=== PATIENT | male | born 1955 | race Caucasian/White ===

== ENCOUNTER 2022-07-04 09:14 | Emergency (ER) | payer MEDICARE, SELFPAY ==
--- NOTE | ~2022-07-04 | XR_ITS ---
EXAMINATION: XR chest 2V DATE: 07/04/2022 10:01 INDICATION: Cough and fever and congestion. TECHNIQUE: Frontal and lateral views of the chest were obtained. COMPARISON: None. FINDINGS: There is no pneumonia, pleural effusion, or pneumothorax. The heart size is normal. There i s a left chest wall pacer with leads in the right atrium and right ventricle. There are surgical clip s in the abdomen. IMPRESSION: 1. No acute cardiopulmonary disease. Reviewed, dictated and finalized at location A. [facility] [employer]
[2022-07-04 09:26] VITALS: BP 146/81; PULSE 89; RESP 20; TEMP 37.1; O2SAT 97
--- NOTE | 2022-07-04 09:46 | ED.URI ---
HPI - URI/Sore Throat General Chief Complaint: Upper Respiratory Infection Stated Complaint: Chest Congestion/Cough Source: patient, family and RN notes reviewed History of Present Illness HPI Narrative: 66-year-old male presents to Urgent Care with at side. Patient states he has been having facial congestion and head pressure since Wednesday. Patient reports chest congestion as well. Patient states now when he lays down he coughs uncontrollably. 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 Denies any headache, ear pain, sore throat, vomiting, diarrhea, chest pain, or shortness of breath. Patient has been taking Mucinex, NyQuil, and Tylenol at home. Some parts of this dictation were generated by voice recognition software and may contain typographical and/or grammatical inaccuracies. Related Data Home Medications Medication Instructions Recorded Confirmed apixaban 5 mg tablet (Eliquis) 5 mg PO BID 07/04/22 07/04/22 Allergies Allergy/AdvReac Type Severity Reaction Status Date / Time shellfish derived Allergy Mild Rash Verified 07/04/22 09:44 Review of Systems Review of Systems: CONSTITUTIONAL: Subjective fever EYES: Denies visual changes, redness, or discharge. ENT: Congestion and head pressure CARDIOVASCULAR: Denies chest pain, palpitations, or edema. RESPIRATORY: Cough and chest congestion GASTROINTESTINAL: Denies abdominal pain, nausea, vomiting, or diarrhea. GENITOURINARY: Denies dysuria or hematuria. SKIN: Denies rash or itching. MUSCULOSKELETAL: Denies back pain, joint pain, or myalgia. NEUROLOGIC: Denies headache, numbness, or weakness. PMFSH Family History Family History (Updated 07/05/15 @ 08:16 by DOCTOR UNKNOWN) Father Cerebrovascular accident Mother Family history of chronic obstructive pulmonary disease Acute myocardial infarction Other Diabetes mellitus Family history of cardiovascular disease Family history of malignant neoplasm Social History Social History Alcohol intake: never Comments At the time of my signature, I reviewed and agree with the nursing past medical, surgical, social, and family history. There is no relevant family history pertinent to the patient complaint. Exam Narrative: GENERAL: This is a well-nourished, well-developed patient, in no apparent distress. HEAD: normocephalic, atraumatic. EYES: PERRL. Sclera clear/white. Vision is grossly intact. EARS: External ears normal, auditory canals clear and without drainage, TMs normal without perforation. Hearing grossly intact. NOSE: Congestion THROAT: Mucous membranes moist, posterior pharynx clear. NECK: Neck supple, non-tender without lymphadenopathy, masses or thyromegaly. CARDIOVASCULAR: Regular rate and rhythm without murmurs, gallops, or rubs. RESPIRATORY: Decreased breath sounds throughout. Rales and rhonchi noted. GASTROINTESTINAL: Abdomen soft, non-tender, nondistended. Bowel sounds are active. No hepato-splenomegaly, or palpable masses. No guarding. SKIN: warm, intact with no suspicious lesions or rash, good texture and turgor. NEURO: awake, alert, and oriented to person, place and time. There were no obvious focal neurologic abnormalities. BACK: Nontender without deformity or crepitance. No flank tenderness. Course Course Level of Care: Express Care Visit Vital Signs Vital signs: Vital Signs Temperature 98.7 F 07/04/22 09:26 Pulse Rate 89 07/04/22 09:26 Respiratory Rate 20 07/04/22 09:26 Blood Pressure 146/81 H 07/04/22 09:26 Pulse Oximetry 97 07/04/22 09:26 Oxygen Delivery Room Air 07/04/22 09:26 Temperature 98.7 F 07/04/22 09:26 Pulse Rate 89 07/04/22 09:26 Respiratory Rate 20 07/04/22 09:26 Blood Pressure 146/81 H 07/04/22 09:26 Pulse Oximetry 97 07/04/22 09:26 Oxygen Delivery Room Air 07/04/22 09:26 At the time of my signature, I reviewed and agree with the nursing past medical, surgical, social, and family h
== END 2022-07-04 10:25 | disposition home or self-care (01) ==
PROVIDERS: Emergency Provider Nurse Practitioner Family; PCP Family Medicine
DX: J32.0 Chronic maxillary sinusitis (principal)
CPT/HCPCS: 71046; 99213; G0463

== ENCOUNTER 2023-03-16 12:50 | Emergency (ER) | payer MEDICARE, SELFPAY ==
--- NOTE | 2023-03-16 13:01 | ED.URI ---
HPI - URI/Sore Throat General Chief Complaint: Upper Respiratory Infection Stated Complaint: left side of face/head pain/ear Source: patient and RN notes reviewed Mode of arrival: ambulatory Limitations: no limitations History of Present Illness HPI Narrative: Patient is a 67-year-old male who presents to the [facility] with complaints of headache starting last night. He states that the headache radiates into his left ear and left eye. He denies any visual disturbance. Denies eye redness or drainage. He reports left ear pain but denies drainage. Patient also reports chills and sweats. Denies known fever. States that he has been experiencing nasal congestion, sore throat, an infrequent nonproductive cough. He denies chest pain or shortness of breath. Denies known sick contacts. States that he is experienced some mild nausea with the headache. Denies adominal pain, vomiting, diarrhea. Related Data Home Medications Medication Instructions Recorded Confirmed apixaban 5 mg tablet (Eliquis) 5 mg PO BID 07/04/22 07/04/22 metronidazole 500 mg tablet mg 03/16/23 Allergies Allergy/AdvReac Type Severity Reaction Status Date / Time shellfish derived Allergy Mild Rash Verified 07/04/22 09:44 Review of Systems Review of Systems: CONSTITUTIONAL: Denies fever, but reports chills and sweats. EYES: Denies visual changes, redness, or discharge. ENT: Reports left ear pain and sore throat. CARDIOVASCULAR: Denies chest pain, palpitations, or edema. RESPIRATORY: Denies dyspnea. Reports cough. GASTROINTESTINAL: Denies abdominal pain, vomiting, or diarrhea. Reports nausea. GENITOURINARY: Denies dysuria or hematuria. SKIN: Denies rash or itching. MUSCULOSKELETAL: Denies back pain, joint pain, or myalgia. NEUROLOGIC: Denies numbness or weakness. Reports headache. Pertinent positives per HPI. [facility] Family History Family History Father Cerebrovascular accident Mother Family history of chronic obstructive pulmonary disease Acute myocardial infarction Other Diabetes mellitus Family history of cardiovascular disease Family history of malignant neoplasm Social History Social History Alcohol intake: never Comments At the time of my signature, I reviewed and agree with the nursing past medical, surgical, social, and family history. There is no relevant family history pertinent to the patient complaint. Exam Narrative: GENERAL: This is a well-nourished, well-developed patient, in no apparent distress. HEAD: normocephalic, atraumatic. EYES: Sclera clear/white. Vision is grossly intact. EARS: External ears normal,TMs without perforation. Right TM normal. Left TM erythematous and bulging. Hearing grossly intact. NOSE: External nose normal. Mild congestion. THROAT: Mucous membranes moist, posterior pharynx clear. NECK: Neck supple, non-tender without lymphadenopathy, masses or thyromegaly. CARDIOVASCULAR: Regular rate and rhythm without murmurs, gallops, or rubs. RESPIRATORY: Clear to auscultation. Breath sounds equal bilaterally. No wheezes, rales, or rhonchi. GASTROINTESTINAL: Abdomen soft, non-tender, nondistended. Bowel sounds are active. No hepato-splenomegaly, or palpable masses. No guarding. SKIN: warm, intact with no suspicious lesions or rash, good texture and turgor. NEURO: awake, alert, and oriented to person, place and time. There were no obvious focal neurologic abnormalities. Course Course Level of Care: Express Care Visit Vital Signs Vital signs: Vital Signs Temperature 98.5 F 03/16/23 13:08 Pulse Rate 85 03/16/23 13:08 Respiratory Rate 16 03/16/23 13:08 Blood Pressure 123/67 03/16/23 13:08 Pulse Oximetry 96 03/16/23 13:08 Oxygen Delivery Room Air 03/16/23 13:08 Temperature 98.5 F 03/16/23 13:08 Pulse Rate 85 03/16/23 13:08 Respiratory Rate 16 03/16/23
[2023-03-16 13:08] VITALS: BP 123/67; PULSE 85; RESP 16; TEMP 36.9; O2SAT 96
== END 2023-03-16 13:17 | disposition home or self-care (01) ==
PROVIDERS: Emergency Provider Nurse Practitioner; PCP Family Medicine
DX: H66.92 Otitis media, unspecified, left ear (principal); Z86.73 Personal history of transient ischemic attack (TIA), and cerebral infarction without residual deficits; Z95.0 Presence of cardiac pacemaker
CPT/HCPCS: 99213; G0463

== ENCOUNTER 2024-10-03 08:58 | Emergency (ER) | payer MEDICARE, SELFPAY ==
--- NOTE | ~2024-10-03 | XR_ITS ---
XR chest 2V 10/03/2024 09:30 Indication: Cough for 4 days Procedure: 2 view chest Comparison: 07/04/2022 Findings: Heart size normal. Pacemaker leads stable. No focal air space disease, pulmonary edema, ple ural effusion or suspected pneumothorax. Impression: 1: No acute cardiopulmonary disease. Reviewed, dictated and finalized at location A. Impression: 1: No acute cardiopulmonary disease.
[2024-10-03 09:09] VITALS: BP 140/77; PULSE 75; RESP 16; TEMP 36.4; O2SAT 98
--- OUTSIDE RECORDS SUMMARY | 2024-10-03 09:10 | XMS_ITS | Encounter Summary ---
Author Organization [facility] Healthcare Address [address] [place] [id number] Care Team Providers Care Seasonal Sales Associate Name Role Phone Marc Patel MD Primary Care Provider [phone] Hector Ramey MD Unavailable [phone] Tung Good DO Unavailable [phone] Marino Pang NP Unavailable [phone] Encounter Details Date Type Department Care Team (Late st Contact Info) Description 10/15/2023 Telephone [facility] [address] [place] [address] Marc Patel MD [address] [place] [address] Social History Tobacco Use Types Packs/Day Years Used Date Smoking Tobacco: Every Day Cigarettes Smokeless Tobacco: Never Comments:Smoking History Pac ks/day: 1 Packs Alcohol Use Standard Drinks/Week Comments No 0 (1 standard drink = 0.6 oz pur e alcohol) AUDIT-C Answer Date Recorded Q1: How often do you have a drink containing alcohol? Never 09/23/2021 Q2: How many drinks containi ng alcohol do you have on a typical day when you are drinking? Patient does not drink Q3: How often do you have si x or more drinks on one occasion? Never 09/23/2021 PHQ-2 Answer Date Recorded PHQ-2 Total Score (If total score is 3 or more points, staff should administer the PHQ-9) 0 03/29/2023 PRAPARE - Transportation Answer Date Re corded In the past 12 months, has l ack of transportation kept you from medical appointments or from getting medications? No 12/2020 In the past 12 months, has l ack of transportation kept you from meetings, work, or from getting things needed for daily living? No 08/08/2020 Personal Safety Answer Date Recorded Have you ever been in or are you currently in a harmful physical or emotional relationship or is someone making you feel afraid or unsafe? 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 Gender Identity Not on file Sexual Orientation Not on file documented as of this encounter Plan of Treatment Upcoming Encounters Date Type Department Care Team (Late st Contact Info) Description 01/30/2025 10:30 AM CDT Hospital Encounter [address] [address] Milena Dan MD [address] [place] [address] [address]REZ [address] [place] [id number] 01/30/2025 10:30 AM CDT - 01/30/2025 11:00 AM CDT Surgery [address] [address] Milena Dan MD [address] [place] [address] DR [address]REZ [address] [place] [id number] COLONOSCOPY Scheduled Procedures Name Priority Associated Diagnoses Date/Ti me COLONOSCOPY History of colonic polyps 01/30/2025 10:30 AM CDT documented as of this encounter Visit Diagnoses Not on filedocumented in this encounter Care Teams Seasonal Sales Associate Relationship Specialty Start Date End Date Marc Patel MD [address] [place] [address] PCP - General 07/01/15 Hector Ramey MD [address] [place] [address] Consulting Physician Cardiovascular Disease 07/20/18 Tung Good DO [address] [facility] [address] [place] [address] Cardiovascular Disease 07/20/18 Marino Pang NP [address] [facility] [address] [place] [address] Nurse Practitioner Nurse Practitioner 09/23/21 documented as of this encounter
--- OUTSIDE RECORDS SUMMARY | 2024-10-03 09:10 | XMS_ITS | Clinical Summary ---
Author Organization [facility] Address [address] [place] [address] Care Team Providers Care Industrial Workers Name Role Phone Marc Patel MD Primary Care Provider [phone] Hector Ramey MD Unavailable [phone] Tung Good DO Unavailable [phone] Marino Pang NP Unavailable [phone] Allergies Active Allergy Reactions Criticality Noted Date Comments Shellfish Containing Products Edema,Vomiting Medium Shellfish Derived Rash,Edema Medium Medications digestive enzymes capsule Take 1 capsule by mouth 2 (two) times a day. Active HYDROcodone-dat taminophen (NORCO) 5-325 mg per tabletIndicatio ns:Pain Take 1 tablet by mouth daily as needed for pain 30 tablet 09/10/2024 10/11/19 25 Active HYDROcodone-dat taminophen (NORCO) 5-325 mg per tabletIndicatio ns:Pain Take 1 tablet by mouth daily as needed for pain 30 tablet 10/10/2024 11/10/19 25 Active apixaban (Eliquis) 5 mg tablet Take 1 tablet (5 mg total) by mouth 2 (two) times a day 60 tablet 11 07/28/2024 07/29/19 26 Active amoxicillin-cla vulanate (AUGMENTIN) 875-125 mg per tablet Take 1 tablet by mouth 2 (two) times a day for 10 days 20 tablet 09/27/2024 10/08/19 25 Active HYDROcodone-dat taminophen (NORCO) 5-325 mg per tabletIndicatio ns:Pain Take 1 tablet by mouth daily as needed for pain 30 tablet 08/11/2024 09/11/19 25 Active Problems Problem Noted Date Diagnosed Date Vertebrogenic low back pain 06/01/2024 Overactive bladder 02/03/2024 Assessment & Plan (02/03/2024 9:42 AM CDT): Flomax started to aid in urinary frequency relief. Will continue to monitor. Need for influenza vaccination 02/03/2024 Assessment & Plan (02/03/2024 9:42 AM CDT): Flu vaccine given in office. Lumbar radiculopathy 02/03/2024 Assessment & Plan (02/03/2024 9:43 AM CDT): Continues to follow with ORTHO for pain control and monitoring. History of colonic polyps 02/03/2024 Viral URI with cough 03/29/2023 Assessment & Plan (03/29/2023 2:43 PM SURGICAL SPECIALIST): Symptoms gradually improving. Prescribed Medrol taper for residual cough and ear pressure. Instructed patient to use albuterol inhaler 1-2 puffs every 4-6 hours as needed. Recommend avoiding pseudoephedrine/Sudafed. Encouraged smoking cessation. Continue pushing fluids. Patient to follow-up in the next few days if experiencing any new or worsening symptom. Lungs clear on exam. Sinusitis 01/25/2023 BMI 27.0-27.9,adult 11/13/2021 Assessment & Plan (03/29/2023 2:42 PM SURGICAL SPECIALIST): Patient with intentional weight loss following healthy lifestyle changes, following lower carb diet and working on increasing protein. Assessment & Plan (11/13/2021 8:38 AM CDT): Reviewed need to lose weight, reviewed health benefits. Reviewed recommendations for daily intake & activity 20-30 minutes/day. Discussed healthy diet and importance of regular physical activity. Urinary frequency 11/13/2021 Assessment & Plan (11/13/2021 8:39 AM CDT): Denies UTI symptoms. PSA ordered; will contact with results when received. 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 He will continue with long-term or anticoagulation. Venous insufficiency 02/20/2021 Osteoarthritis of both knees 02/20/2021 Assessment & Plan (02/20/2021 9:19 AM CDT): Patient asked if there was treatment for his knee arthritis. We discussed the risks of oral anticoagulation in addition to nonsteroidals. His bleeding risk is about 1% per year, adding NSAIDs would change that to about 2% per year. Medicare annual wellness visit, subsequent 11/05 Assessment & Plan (02/03/2024 9:42 AM CDT): In regard to health maintenance, Colonoscopy- referral placed PSA- UTD Influenza vaccine- UTD Pneumococcal vaccine- UTD Eat a healthy diet: focus on lean meats and proteins, more fruits, vegetables and whole grains and low in sugars and fats. Limit red meat and avoid processed meat. Maintain a healthy weight; avoid being overweight. Aim for a normal body mass index (BMI) of 18.5-24.9. Help learning to eat healthier, we can set up appointment with payroll technician/supervisor assembly. Have an active lifestyle, strive for 30 minutes of moderate exercise 5 times a week and strength or resistance training at least twice a week. Use broad-spectrum (UVA+UVB) sunscreen with SPF 30 or greater, is water resistant, limit time spent in the sun (10 am-4pm), wear hat, wear UV protective clothing, wear sunglasses. Never use a tanning bed. Skin that was irradiated may be more sensitive over your lifetime. Limit alcohol intake, 1 drink per day for a woman and 2 drinks per day for a man. Assessment & Plan (11/13/2021 8:38 AM CDT): 1. Eat a healthy diet: focus on lean meats and proteins, more fruits, vegetables and whole grains and low in sugars and fats. Limit red meat and avoid processed meat. 2. Maintain a healthy weight; avoid being overweight. Aim for a normal body mass index (BMI) of 18.5-24.9. Help learning to eat healthier, we can set up appointment with payroll technician/supervisor assembly. 3. Have an active lifestyle, strive for 30 minutes of moderate exercise 5 times a week and strength or resistance training at least twice a week. 4. Use broad-spectrum (UVA+UVB) sunscreen with SPF 30 or greater, is water resistant, limit time spent in the sun (10 am-4pm), wear hat, wear UV protective clothing, wear sunglasses. Never use a tanning bed. Skin that was irradiated may be more sensitive over your lifetime. 5. Does smoke tobacco; declines participate in a smoking cessation program. 6. Limit alcohol intake, 2 drinks per day for a man. Assessment & Plan (11/05/2020 7:29 PM CDT): 1. Eat a healthy diet: focus on lean meats and proteins, more fruits, vegetables and whole grains and low in sugars and fats. Limit red meat and avoid processed meat. 2. Maintain a healthy weight; avoid being overweight. Aim for a normal body mass index (BMI) of 18.5-24.9. Help learning to eat healthier, we can set up appointment with payroll technician/supervisor assembly. 3. Have an active lifestyle, strive for 30 minutes of moderate exercise 5 times a week and strength or resistance training at least twice a week. 4. Use broad-spectrum (UVA+UVB) sunscreen with SPF 30 or greater, is water resistant, limit time spent in the sun (10 am-4pm), wear hat, wear UV protective clothing, wear sunglasses. Never use a tanning bed. Skin that was irradiated may be more sensitive over your lifetime. 5. Does smoke tobacco; declines participate in a smoking cessation program. 6. Limit alcohol intake, 2 drinks per day for a man. Hx of colonic polyps 09/16/2020 Overview (09/16/2020): Added automatically from request for surgery [id number] Assessment & Plan (11/13/2021 8:37 AM CDT): Last colonoscopy 12/23/[address] Dan. To repeat in 3 yrs. Tobacco dependence due to cigarettes 08/15/2020 Assessment & Plan (03/29/2023 2:42 PM SURGICAL SPECIALIST): Encouraged smoking cessation Assessment & Plan (11/13/2021 8:37 AM CDT): Precontemplative. Encouraged complete smoking cessation. Discussed different types of medications & kydu-djn-jmymixb aides to help with cessation. Assessment & Plan (11/07/2020 8:34 AM CDT): Continues to smoke 1+PPD. contemplative. Encouraged complete smoking cessation. Discussed different types of medications & ymlf-jsi-vvzvwps aides to help with cessation. Patients smoking >10 cigarettes/day: -Begin with step 1 (21 mg/day) for 6 weeks -followed by step 2 (14 mg/day) for 2 weeks -finish with step 3 (7 mg/day) for 2 weeks Discussed above w/Mr Yury. nicoderm patches 21mg/day sent. Assessment & Plan (08/15/2020 9:31 AM CDT): Precontemplative. Encouraged complete smoking cessation. Discussed different types of medications & thfx-lue-rejzimh aides to help with cessation. Encounter for screening for lipid disorder 08/15 Assessment & Plan (02/03/2024 9:53 AM CDT): Lipid stable continue to monitor. Assessment & Plan (11/07/2020 8:33 AM CDT): 04/17/18 GP=813 HDL=32 QA=085 KKJ=545 9/4/20 XH=739 HDL=27 XW=470 LDL=71 TC/HDL=6.0 08/16/20 QR=590 HDL=39 TF=839 RZR=193 TC/HDL=5.0 Lipid panel ordered; will call w/results when received. Reviewed diet/exercise recommendations. Assessment & Plan (08/15/2020 11:44 AM CDT): Lab Results Component Value Date CHOL 168 01/05/2020 CHOL 173 06/30/2017 CHOL 160 06/14/2015 HDL 27 (L) 01/05/2020 HDL 29 (L) 06/30/2017 HDL 32 (L) 06/14/2015 LDL 107 06/14/2015 LDL 107 09/15/2012 TRIG 350 (H) 01/05/2020 TRIG 240 (H) 06/30/2017 TRIG 106 06/14/2015 Lipid panel ordered; will call w/results when received. Reviewed diet/exercise recommendations. Colon cancer screening 08/15/2020 Assessment & Plan (02/03/2024 9:41 AM CDT): Referral for GI consult placed Assessment & Plan (11/07/2020 8:21 AM CDT): Has colonoscopy scheduled for 12/29/20 w/Dr Dan Assessment & Plan (08/15/2020 11:45 AM CDT): Referral to [facility] for colonosocpy creening. Dr Dan had requested for repeat 2017 (after 09/11/14 colonoscopy). Cardiac pacemaker 02/21/2020 Assessment & Plan (11/13/2021 8:37 AM CDT): Has L chest PPM interrogated every 3 mos. Last done 10/2021. Managed by [facility]. Assessment & Plan (02/21/2020 11:40 AM CDT): Patient's pacemaker revealed adequate capture and sensing thresholds. He has had recurrent episodes of PAF. Battery life was adequate Paroxysmal atrial fibrillation 08/22/2019 Assessment & Plan (11/13/2021 8:36 AM CDT): Managed by [facility]. Has appt 01/2022 w/Dr Gonzales. L chest PPM. eliquis 5mg bid. Remains asymptomatic. Assessment & Plan (02/20/2021 8:55 AM CDT): Patient remains asymptomatic with his atrial fibrillation. He has had no symptoms to suggest heart failure. He will continue with his current conservative management and long-term anticoagulation. Assessment & Plan (11/05/2020 7:32 PM CDT): Managed by Dr Good. Eliquis 5mg bid. L chest PPM. Assessment & Plan (08/15/2020 11:42 AM CDT): Managed by Dr Good. L chest PPM. Remains on eliquis 5mg bid. Assessment & Plan (02/21/2020 10:55 AM CDT): Patient remains asymptomatic of any symptoms from his PAF. Will continue with conservative management. Anticoagulation management encounter 08/22/2019 Assessment & Plan (02/21/2020 10:55 AM CDT): Patient has had no major bleeding events on his oral anticoagulation. This will continue long-term. Sinus node dysfunction 08/18/2019 Cryptogenic stroke 08/18/2019 Resolved Problems Problem Noted Date Diagnosed Date Resolved Date Class 1 obesity due to exces s calories without serious comorbidity with body mass index (BMI) of 31.0 to 31.9 in adult 11/07/2020 Assessment & Plan (11/07/2020 8:27 AM CDT): Reviewed need to lose weight, reviewed health benefits. Reviewed recommendations for daily intake & activity 20-30 minutes/day. Discussed healthy diet and importance of regular physical activity. Hematuria 09/09/2020 11/07/2020 Class 1 obesity due to exces s calories without serious comorbidity with body mass index (BMI) of 32.0 to 32.9 in adult 08/15/2020 Assessment & Plan (08/15/2020 11:19 AM CDT): Reviewed need to lose weight, reviewed health benefits. Reviewed recommendations for daily intake & activity 20-30 minutes/day. Discussed healthy diet and importance of regular physical activity. Right flank pain 08/15/2020 11/07/2020 Assessment & Plan (08/15/2020 1:13 PM CDT): Difficult to assess if musculoskeletal soft tissue. UA/cx ordered (will come back to have completed as he could not leave sample at time of appt). Not taking any otc for pain. Cannot take NSAIDs d/t eliquis but instructed to take acetaminophen per box directions. Cyclobenzaprine & medrol dose pack sent. Reviewed med SE & scheduling. Discussed otc biofreeze/muscle rubs to help. Discussed engaging w/uro but is leaving to go to [place] with as her sister is having mastectomy d/t breast cancer. They are staying there w/her for a short while. Reviewed red flags. Smoker 12/10/2017 08/15/2020 Assessment & Plan (02/21/2020 11:38 AM CDT): Unfortunately the patient continues to smoke. We discussed the importance of smoking cessation. Gallstones 11/17/2017 08/15/2020 Overview (11/17/2017): Added automatically from request for surgery [id number] Incisional hernia, without o bstruction or gangrene 11/17/2017 08/15/2020 Overview (11/17/2017): Added automatically from request for surgery [id number] Left upper quadrant pain 07/06/2017 Abdominal distention 07/06/2017 021 Tobacco dependence 06/29/2017 0 Acute sinusitis 06/05/2016 08/15/2020 Overview (08/06/2016): Acute sinusitis with symptoms > 10 days Tobacco use 06/05/2016 08/18/2019 Overview (08/06/2016): Tobacco use Diverticulitis of intestine 06/15/2015 08/15/2020 Overview (08/06/2016): Diverticulitis Encounters Date Type Department Care Team Description 10/02/2024 Telephone [facility] [address] [address] Marc Patel MD Additional Services Or Orders 09/27/2024 Orders Only [facility] [address] [address] Marc Patel MD 09/08/2024 9:01 AM CDT Anesthesia Event [facility] [address] [place] [address] Isaiah Alex MD Standefer, Zachary Daniel, CRNA 09/08/2024 9:00 AM CDT - 09/08/2024 10:15 AM CDT Surgery [facility] [address] [place] [address] Roberth Mehta MD Intracept L4, L5, and S1 09/08/2024 7:21 AM CDT - 09/08/2024 11:55 AM CDT Hospital Encounter [facility] [address] [place] [address] Roberth Mehta MD Discharge Disposition: Discharge to home or self care 08/18/2024 Telephone [facility] [address] [facility] [address] [place] [address] Roberth Mehta MD 08/17/2024 8:00 AM CDT Office Visit [facility] [address] [place] [address] Aravind Baer PA Bilateral primary osteoarthritis of knee (Primary Dx) 07/26/2024 2:27 PM CDT - 07/26/2024 11:59 PM CDT Hospital Encounter [facility] [address] [place] [address] Roberth Mehta MD Vertebrogenic low back pain (Primary Dx); Lumbar radiculopathy Discharge Disposition: Discharge to home or self care 07/14/2024 12:30 PM CDT Office Visit [facility] [id number] [place] [address] [address] [place] [address] Cortney Odom NP Lumbar radiculopathy 07/12/2024 10:15 AM CDT Ancillary Procedure [facility] [employer] [address] [place] [address] [address] [place] [address] Cardiac pacemaker; Paroxysmal atrial fibrillation (HCC); SSS (sick sinus syndrome) ([facility]) 07/12/2024 Telephone [facility] [place] [address] Anisha Campos MA from Last 3 Months Immunizations Immunization Administration Dates Next Due Influenza, Quadrivalent, Hig h Dose, Preservative Free, Intrr 01/18/2023,01/20/2022,02/05/2021,02/20 Influenza, Quadrivalent, Spl it, Intramuscular 01/15/2017 Influenza, Quadrivalent, Spl it, Preservative Free, Intramuscular 01/24/2019,01/24/2018,01/23/2018 Influenza, Trivalent, High D ose, Split, Preservative Free, Intramuscular 02/03/2024 Influenza, Unspecified 01/31/2018,01/01/2017 Pfizer SARS-CoV-2 Monovalent Vaccination (12+ Yrs) PURPLE 03/11/2021,08/05/2020,07/12/2020 Pneumococcal Conjugate PCV 13 01/24/2019 Pneumococcal Polysaccharide PPV23 02/21/2020 Surgical History Surgery Date Site/Laterality Comments VASECTOMY Vasectomy OTHER SURGICAL HISTORY testical cyst removal OTHER SURGICAL HISTORY 05/03/2015 - 05/02/2016 Hand assist laparoscopic sigmoid colectomy COLON SURGERY portion of intenstine removed CHOLECYSTECTOMY 12/10/2017 Laparoscopic Cholecystectomy with Tissue Repair of Umbilical Hernia INSERT / REPLACE / REMOVE PACEMAKER July 2018 POLYPECTOMY COLONOSCOPY 09/11/2014 COLONOSCOPY 09/29/2017 Medical History Medical History Date Comments Hx Other Medical diverticulitis; Comments: [place] 07/06/2014 - Diverticulosis Sick sinus syndrome (HCC) Paroxysmal atrial fibrillation (HCC) 08/22/2019 Hematuria Erectile dysfunction Back pain Colon polyp Diverticulitis Stroke (HCC) Family History Medical History Relation Name Comments Stroke Father Dad Stroke; COPD Mother Mom COPD; Heart disease Mother Mom Cardiovascular disease; Relation Name Status Comments Father Dad (Age 76) Mother Mom Social History Tobacco Use Types Packs/Day Years Used Date Smoking Tobacco: Every Day Cigarettes Smokeless Tobacco: Never Tobacco Cessation:Ready to Q uit: Yes; Counseling Given: Yes Comments:Smoking History Packs/day: 1 Packs Alcohol Use Standard Drinks/Week Comments No 0 (1 standard drink = 0.6 oz pur e alcohol) AUDIT-C Answer Date Recorded Q1: How often do you have a drink containing alcohol? Never 08/31/2024 Q2: How many drinks containi ng alcohol do you have on a typical day when you are drinking? Patient does not drink Q3: How often do you have si x or more drinks on one occasion? Never 08/31/2024 PHQ-2 Answer Date Recorded PHQ-2 Total Score (If total score is 3 or more points, staff should administer the PHQ-9) 2 04/11/2024 PRAPARE - Transportation Answer Date Re corded In the past 12 months, has l ack of transportation kept you from medical appointments or from getting medications? No 12/2020 In the past 12 months, has l ack of transportation kept you from meetings, work, or from getting things needed for daily living? No 08/08/2020 PHQ-9 Answer Date Recorded PHQ-9 Total Score 3 04/11/2024 Personal Safety Answer Date Recorded Have you ever been in or are you currently in a harmful physical or emotional relationship or is someone making you feel afraid or unsafe? Denies 09/08/2024 Sex and Gender Information Value Date Recorded Sex Assigned at Not on file Legal Sex Male 9:05 AM SURGICAL SPECIALIST Gender Identity Not on file Sexual Orientation Not on file Obstetrics History Last Filed Vital Signs Vital Sign Reading Time Taken Comments Blood Pressure 151/84 09/08/2024 11:40 AM CDT Pulse 61 09/08/2024 11:40 AM CDT Temperature 35.6 C (96 F) 09/08/2024 11:40 AM CDT Respiratory Rate 16 09/08/2024 11:40 AM CDT Oxygen Saturation 96% 09/08/2024 11:40 AM CDT Inhaled Oxygen Concentration - - Weight 97.3 kg (214 lb 8.1 oz) 09/08/2024 7:35 A M CDT Height 177.8 cm (5' 10) 09/08/2024 7:35 AM CDT Body Mass Index 30.78 09/08/2024 7:35 AM CDT Plan of Treatment Upcoming Encounters Date Type Department Care Team (Late st Contact Info) Description 01/30/2025 10:30 AM CDT Hospital Encounter [address] [address] Mliena Dan MD [address] [facility] [place] [address] 01/30/2025 10:30 AM CDT - 01/30/2025 11:00 AM CDT Surgery [address] [address] Milena Dan MD [address] [facility] [place] [address] COLONOSCOPY Scheduled Procedures Name Priority Associated Diagnoses Date/Ti me COLONOSCOPY History of colonic polyps 01/30/2025 10:30 AM CDT Health Maintenance Due Date Last Done Comments Hepatitis C Screening 1955 DTaP/Tdap/Td Vaccine (1 - Tdap) 1966 Hepatitis B Screening 07/09/1971 Zoster Vaccine (1 of 2) 07/09/2003 Colon Cancer Screening-Colonoscopy 12/24/2023 12/23/2020, 09/29/2017, 09/11/2014, Additional history exists Covid-19 Vaccine (2023-2 5 season) 2024 03/11/2021, 08/05/2020, 07/12/2020 Fall Risk Assessment 02/02/2025 02/03/2024, 03/29/2023, 11/27/2022, Additional history exists Well Visit 65+ 02/02/2025 02/03/2024, 11/01, 11/13/2021, Additional history exists Depression Screening 04/11/2025 04/11/2024, 04/11/2024, 02/03/2024, Additional history exists Pneumococcal vaccine 65+ Completed 02/21/2020, 01/02 Colon Cancer Screening-CT Colonography Discontinued 12/23/2020, 09/29/2017, 09/11/2014, Additional history exists Colon Cancer Screening-DNA Stool Discontinued 12/23/2020, 09/29/2017, 09/11/2014, Additional history exists Colon Cancer Screening-FIT Discontinued 12/23, 09/29/2017, 09/11/2014, Additional history exists Colon Cancer Screening-Sigmoidoscopy Discontinued 12/23/2020, 09/29/2017, 09/11/2014, Additional history exists Abdominal Aortic Aneurysm (A AA) Screen Completed 10/15/2022, 08/07/2020, 07/07/2017, Additional history exists Prostate Cancer Screening-PSA Discontinued , 11/19/2021, 11/07/2020, Additional history exists Influenza Vaccine Completed 02/03/2024, , 01/20/2022, Additional history exists Medical Devices Implanted Type Area Hand Welt Butter Device Identifier Shelf Expiration Date Model / Serial / Lot [employer] [id number] Promri Solia S 60cm Lead Pacing Steroid Eluting - [id number] - [id number] Implanted:Qty: 1 on 07/20/2018 by Hector Ramey MD at [facility] Lead [employer] 06/02/2020 [id number] / [id number] / [employer] [id number] Solia S 53cm Steroid Elute Bipolar Active Fixation Endocardial - [id number] - [id number] Implanted:Qty: 1 on 07/20/2018 by Hector Ramey MD at [facility] Lead [employer] 04/01/2020 [id number] / [id number] / [employer] [id number] Edora Promri 88l34d5.5mm 1 Chamber Rate Adaptive Unipolar Bipolar - [id number] - [id number] Implanted:Qty: 1 on 07/20/2018 by Hector Ramey MD at [facility] Pacemaker [employer] 10/01/2019 [id number] / [id number] / Procedures Procedure Name Priority Date/Time Associated Diagnosis Comments XR SPINE LUMBAR 2 OR 3 VIEWS IP Routine 09/08/2024 10:12 AM CDT FL FLUOROSCOPY < 1 HOUR IP Routine 09/08/2024 10:12 AM CDT OH AN ELECTIVE ENDOTRACHEAL AIRWAY Routine 09/08/2024 9:37 AM CDT ABLATION RADIOFREQUENCY 09/08/2024 8:46 AM CDT M54.51 vertebrogenic low back pain Special Needs BLOOD THINNER HOLD < ECG 12-LEAD Routine 09/08/2024 7:53 AM CDT OH ARTHROCENTESIS ASPIR&/INJ MAJOR JT/BURSA W/O US Routine 08/17/2024 8:00 AM CDT Bilateral primary osteoarthritis of knee DEVICE CHECK - REMOTE Routine 07/10/2024 10:10 AM CDT Cardiac pacemaker Paroxysmal atrial fibrillation (HCC) SSS (sick sinus syndrome) (HCC) PSA SCREEN Routine 11/27/2022 10:55 AM CDT Prostate cancer screening COLONOSCOPY 12/23/2020 10:[address] ABDOMEN PELVIS WO CONTRAST ED 08/07/2020 10:24 AM CDT from Last 3 Months or Most Recently Relevant to Health Maintenance Results * FL Fluoroscopy < 1 Hour (09/08/2024 10:12 AM CDT) Narrative [facility] - 09/08/2024 10:13 AM CDT The images from this study are not interpreted by Radiology. Please refer to the physician's procedure / OR operative note. us Roberth Mehta MD IMG FLUOROSCOPY PROCEDU RES Final Result [facility] * XR Spine Lumbar 2 or 3 Views (09/08/2024 10:12 AM CDT) Narrative [facility] - 09/08/2024 10:13 AM CDT The images from this study are not interpreted by Radiology. Please refer to the physician's procedure / OR operative note. us Roberth Mehta MD IMG XR PROCEDURES Final Result [facility] * OH AN ELECTIVE ENDOTRACHEAL AIRWAY (09/08/2024 9:37 AM CDT) Narrative Marino Mcarthur CRNA - 09/08/2024 9:37 AM CDT Marino Mcarthur CRNA 09/08/2024 9:38 AM Airway Patient location: OR Urgency: elective Date/time: 09/08/2024 9:09 AM Indications for airway management: anesthesia and airway protection Difficult airway: no Staff: Placed by: SOLDERING MACHINE SETTER: Marino Mcarthur CRNA Emergent airway documentation: Risks and benefits discussed: yes Consent obtained: yes Consent given by: patient Airway prep: Preoxygenated: yes Patient position: sniffing Mask difficulty assessment: 2 - vent by mask + OA or adjuvant Spontaneous ventilation during airway: absent Sedation level during airway: GA Final airway details: Final airway type: endotracheal airway Tube type: ETT ETT size: 7.5 mm Cuffed: yes Technique used for successful ETT placement: video laryngoscopy Devices/Methods used in placement: intubating stylet Insertion site: oral Blade type: Bob Video blade type: Truong Blade size: 4 Cormack-Lehane (video): grade I - full view of glottis Cuff volume: 7 mL Cuff inflated with: air ETT to lips: 22 cm Placement verified by: auscultation and CO2 detection Airway secured with: silk tape Number of attempts: 1 Planned trial extubation: yes Additional comments: Atraumatic intubation. Dentition/lips/oral cavity same as preop us Isaiah Alex MD ANESTHESIA ORDERABLES Final Result * ECG 12 lead (09/08/2024 7:53 AM CDT) 09/08/2024 7:53 AM CDT Narrative [facility] - 09/08/2024 8:57 AM CDT Vent Rate: 61 bpm RR Interval: 982 msec [place] Interval: 223 msec QRS Duration: 150 msec QT Interval: 410 msec QTC Interval: 412 msec P-R-T [place]: 116 - -14 - -9 degrees IMPRESSION: ELECTRONIC ATRIAL PACEMAKER RIGHT BUNDLE BRANCH BLOCK [120+ ms QRS DURATION, UPRIGHT V1, 40+ ms S IN I/aVL/V4/V5/V6] ABNORMAL ECG Compared to prior EKG, atrial pacing is new Electronically Signed By: Beau Fisher MD Robbi Vega DO ECG ORDERABLES Fin al Result [facility] * [place] ARTHROCENTESIS ASPIR&/INJ MAJOR JT/BURSA W/O US (08/17/2024 8:00 AM CDT) Narrative Aravind Baer PA - 08/17/2024 8:00 AM CDT Aravind Baer PA 08/17/2024 8:37 AM Large Joint (Hip, Knee, Shoulder) Injection: bilateral knee Performed by: Aravind Baer PA Authorized by: Aravind Baer PA Large Joint Injection/Aspiration: Consent Given by: Patient Timeout: prior to procedure the correct patient, procedure, and site was verified Verbal consent obtained: Yes Supporting Documentation: Indications: Pain Procedure Details: Location: Knee Site: Bilateral knee Prep: patient was prepped and draped in usual sterile fashion Needle Size: 22 G Approach: Anterolateral Ultrasound guided: No Fluroscopic guidance: No Medications Right Large Joint Injection: 2 mL lidocaine 20 mg/mL (2 %); 60 mg hyaluronate sodium, stabilized 60 mg/3 mL Medications Left Large Joint Injection: 2 mL lidocaine 20 mg/mL (2 %); 60 mg hyaluronate sodium, stabilized 60 mg/3 mL Patient tolerance: Patient tolerated the procedure well with no immediate complications Aravind GAMINO IN CLINIC/BEDSIDE KRISTI LOUISE Final Result * DEVICE CHECK - REMOTE (07/10/2024 10:10 AM CDT) Anatomical Region Laterality Modality Other Narrative 07/14/2024 1:16 PM CDT Images from the original result were not included. 07/12/2024 [employer] quarterly remote device check NOTE The following shows snippets from the complete quarterly report. The complete report in its entirety is attached to this Result Text in Bone Char Puller Periodic IEGM Detection Jul 12, 2024, 12:59:00 AM Dual Chamber PPM implanted July 2018 Battery longevity = OK/55% AT/AF burden: 0% Ap: 74% RVp: 1% Last in-office: 03/01/2024 Next in-office: 03/07/2025 Reviewed By Rosalia Shields BATTERY RECHARGER us Jocelynn Gonzales MD CV CARDIAC SERVICES PROCED URES Final Result * PSA screen (11/27/2022 10:55 AM CDT) PSA-Total 0.75 <=5.40 ng/mL [facility]) Comment: Interpretive Data AGE SEX REFERENCE INTERVAL 0 minutes-150 years Female None 0 minutes-49 years Male None 50-59 years Male 0-3.90 60-69 years Male 0-5.40 70-79 years Male 0-6.20 80-150 years Male 0-6.20 The Shoaib PSA Total assay procedure was used. Results from different manufacturers or methods may not be comparable. Serial testing should be performed using the same method. Current interpretive data last revised 21. Testing performed by: [facility], [address] [place] [address]., [id number] Blood 11/27/2022 10:5 5 AM CDT 11/27/2022 5:06 PM CDT us Marc Patel MD LAB BLOOD ORDERABLES Glenna l Result [facility] ([place]) 1 [facility] Department [place] [address] * COLONOSCOPY (12/23/2020 10:01 AM CDT) Anatomical Region Laterality Modality Other Narrative Procedure Note Milena Dan MD - 12/23/2020 10:01 AM CDT [facility] Patient Name: Tung Cotton Procedure Date: 12/23/2020 10:01 AM Date of : 1955 Admit Type: Outpatient Age: 65 Gender: Male Attending MD: Milena Dan M.D. Room: [facility]COPY ROOM 1 Note Status: Finalized Patient Profile: This is a 65 year old male. History of adenomapolyps. No family history of colon cancer. Procedure: Colonoscopy Indications: Surveillance: Personal history of adenomatouspolyps on last colonoscopy 3 years ago, Last colonoscopy:August 2017 Referring MD: Marc Patel M.D. Providers: Milena Dan M.D. Impression: - One 8 mm polyp in the ascending colon, removedwith a jumbo cold forceps. Resected and retrieved. - One 5 mm polyp in the transverse colon, removedwith a jumbo cold forceps. Resected and retrieved. - One 5 mm polyp in the descending colon, removedwith a jumbo cold forceps. Resected and retrieved. - Diverticulosis in the sigmoid colon. - 2 polyps in the distal sigmoid colon, removedwith a jumbo cold forceps. Resected and retrieved. - Internal hemorrhoids. Recommendation: - Await pathology results. - Repeat colonoscopy in 4 years for screeningpurposes. - Continue present medications. Medicines: Monitored Anesthesia Care Complications: No immediate complications. Estimated Blood Loss: Estimated blood loss: none. Procedure: Pre-Anesthesia Assessment: - Prior to the procedure, a History and Physicalwas performed, and patient medications and allergieswere reviewed. The patient's tolerance of previous anesthesia was also reviewed. The risks andbenefits of the procedure and the sedation options and risks were discussed with the patient. All questions were answered, and informed consent was obtained. Prior Anticoagulants: The patient has taken no previous anticoagulant or antiplatelet agents. ASA Grade Assessment: III - A patient with severe systemic disease. After reviewing the risks and benefits,the patient was deemed in satisfactory condition to undergo the procedure. The benefits, risks and alternatives of theprocedure and sedation were discussed and informed consentwas obtained. All questions were answered. Please referto the signed informed consent document in the medical record. The bowel preparation used was Miralax via split dose instruction. The bowel preparation usedwas bisacodyl tablets via split dose instruction. The scope was passed under direct vision. The Pediatric Colonoscope PCF-H190L [id number] was introducedthrough the anus and advanced to the the cecum, identifiedby appendiceal orifice and ileocecal valve. Thequality of the bowel preparation was good. Bowel prep was administered using a split dose. Findings: The perianal and digital rectal examinations were normal. The cecum appeared normal. A 8 mm polyp was found in the ascending colon. The polyp was sessile. The polyp was removed with a jumbo cold forceps. Resection andretrieval were complete. A 5 mm polyp was found in the transverse colon. The polyp wassessile. The polyp was removed with a jumbo cold forceps. Resection andretrieval were complete. A 5 mm polyp was found in the descending colon. The polyp wassessile. The polyp was removed with a jumbo cold forceps. Resection andretrieval were complete. Multiple small-mouthed diverticula were found in the sigmoid colon. Two flat diminutive polyps noted in the distal sigmoid colon, approximately 5-6 mm size each. Polyps were removed with Jumbo cold forceps. Resection and retrieval was complete. Internal hemorrhoids were found during retroflexion. The hemorrhoids were small. Electronically signed by Milena Dan M.D. Milena Dan M.D. 12/23/2020 11:09:40 AM Number of Addenda: 0 Note Initiated On: 12/23/2020 10:01 AM Procedure Code(s): --- Professional --- 37363, Colonoscopy, flexible; with biopsy, single or multiple Diagnosis Code(s): --- Professional --- Z86.010, Personal history of colonic polyps K64.8, Other hemorrhoids K57.30, Diverticulosis of large intestine without perforation orabscess without bleeding K63.5, Polyp of colon CPT copyright 2019 [employer]. All rights reserved. The codes documented in this report are preliminary and upon escort vehicle driver reviewmay be revised to meet current compliance requirements. Recognized by the [employer] for promoting quality in endoscopy Milena Dan MD ENDOSCOPY PROCEDURES Final Result * CT Abdomen Pelvis WO Contrast (08/07/2020 10:24 AM CDT) Anatomical Region Laterality Modality Body N/A Computed Tomogra phy 08/07/2020 10:3 7 AM CDT Addenda Addendum by Prem Adamson MD on 08/15/2020 4:06 PM CDT ADDENDUM Addendum issued on 08/15/2020 4:05 PM by Prem Adamson: This addendum is provided to correct a dictation error and does not alter the original impression. The gallbladder is surgically absent. Electronically signed by: Prem Adamson M.D. Impressions 08/07/2020 10:50 AM CDT No acute process in the abdomen and pelvis. Specifically, no urinary stones, hydronephrosis, cholecystitis or acute appendicitis. Electronically signed by: Prem Adamson M.D. Narrative 08/07/2020 10:50 AM CDT EXAMINATION: CT ABDOMEN PELVIS WO CONTRAST ORDERING HEALTHCARE PROVIDER: VINITA VELEZ HISTORY: Right flank pain. TECHNIQUE: CT abdomen and pelvis without intravenous and without oral contrast. Reconstructed coronal and sagittal MPR images reviewed. All images stored on PACS. Automated exposure control was used as a dose optimization technique for this examination. COMPARISON: 07/07/2017 FINDINGS: LOWER CHEST: The lung bases are clear. The heart is normal in size without pericardial effusion. Atrial ventricular pacemaker leads are present. A 3 mm nodule abutting the pleural surface on image 22, series 2 likely represents a subpleural lymph node. A 3 mm nodule also seen in the left lower lobe on image 11, unchanged since 08/08/2014. Another nodule in the left lower lobe measuring 4 mm abuts the left major fissure and likely represents a subpleural lymph node as well.. The sensitivity for detection of visceral lesions is diminished without the use of intravenous contrast. LIVER: Normal length. GALLBLADDER: Normal without radiodense stones. SPLEEN: Normal length. PANCREAS: No peripancreatic inflammation. ADRENALS: No discrete nodules. KIDNEYS/URINARY TRACT: No obstructing urolithiasis or hydronephrosis. A 3 cm cyst in the anterior midpole the right kidney is not substantially changed. Minimal nonspecific perinephric fat stranding is also unchanged. GI: Status post sigmoid resection with colorectal reanastomosis. No bowel obstruction. Normal appendix. Multiple scattered diverticula are seen in the colon, mostly concentrated in the descending colon. PERITONEUM: No free intraperitoneal air or ascites. VASCULATURE: Mild scattered atherosclerotic calcifications. No abdominal aortic aneurysm. MUSCULOSKELETAL: Moderate disc space narrowing at L5/S1. No suspicious osseous lesions or acute fractures. OTHER: No other acute findings. Procedure Note Prem Adamson MD - 08/07/2020 EXAMINATION: CT ABDOMEN PELVIS WO CONTRAST ORDERING HEALTHCARE PROVIDER: VINITA VELEZ HISTORY: Right flank pain. TECHNIQUE: CT abdomen and pelvis without intravenous and without oral contrast. Reconstructed coronal and sagittal MPR images reviewed. All images stored on PACS. Automated exposure control was used as a dose optimization technique for this examination. COMPARISON: 07/07/2017 FINDINGS: LOWER CHEST: The lung bases are clear. The heart is normal in size without pericardial effusion. Atrial ventricular pacemaker leads are present. A 3 mm nodule abutting the pleural surface on image 22, series 2 likely represents a subpleural lymph node. A 3 mm nodule also seen in the left lower lobe on image 11, unchanged since 08/08/2014. Another nodule in the left lower lobe measuring 4 mm abuts the left major fissure and likely represents a subpleural lymph node as well.. The sensitivity for detection of visceral lesions is diminished without the use of intravenous contrast. LIVER: Normal length. GALLBLADDER: Normal without radiodense stones. SPLEEN: Normal length. PANCREAS: No peripancreatic inflammation. ADRENALS: No discrete nodules. KIDNEYS/URINARY TRACT: No obstructing urolithiasis or hydronephrosis. A 3 cm cyst in the anterior midpole the right kidney is not substantially changed. Minimal nonspecific perinephric fat stranding is also unchanged. GI: Status post sigmoid resection with colorectal reanastomosis. No bowel obstruction. Normal appendix. Multiple scattered diverticula are seen in the colon, mostly concentrated in the descending colon. PERITONEUM: No free intraperitoneal air or ascites. VASCULATURE: Mild scattered atherosclerotic calcifications. No abdominal aortic aneurysm. MUSCULOSKELETAL: Moderate disc space narrowing at L5/S1. No suspicious osseous lesions or acute fractures. OTHER: No other acute findings. IMPRESSION: No acute process in the abdomen and pelvis. Specifically, no urinary stones, hydronephrosis, cholecystitis or acute appendicitis. Electronically signed by: Prem Adamson M.D. Vinita Velez NP IMG CT PROCEDURES Edited Res ult - Final from Last 3 Months or Most Recently Relevant to Health Maintenance Insurance MEDICARE [facility] MEDICARE [facility] BLUE CROSS MEDICARE SUPPLEMENT MEDICARE [facility] MEDICARE SUPPLEMENT Advance Directives For more information, please contact: [phone] * Full Code (Latest Code Status on File) Date Activated Date Inactivated Comments 12/23/2020 9:56 AM 12/23/2020 3:49 PM * Full Code Date Activated Date Inactivated Comments 09/29/2017 10:24 AM 09/29/2017 2:36 PM Care Teams Industrial Workers Relationship Specialty Start Date End Date Marc Patel MD [address] [place] [address] PCP - General 07/01/15 Hector Rmaey MD [address] [place] [address] Consulting Physician Cardiovascular Disease 07/20/18 Tung Good DO [address] [place] [address] [place] [address] Cardiovascular Disease 07/20/18 Marino Pang NP [address] [place] [address] [address] [address] Nurse Practitioner Nurse Practitioner 09/23/21
--- OUTSIDE RECORDS SUMMARY | 2024-10-03 09:10 | XMS_ITS | Clinical Summary ---
Author Organization [facility] Address [address] [place] [address] Phone Care Team Providers Care Deck Worker Name Role Phone Provider, None Primary Care Provider Unavailabl e Allergies Active Allergy Reactions Criticality Noted Date Comments Shellfish Allergy Rash 10/15/2022 Medications Eliquis 5 MG Tablet Take 5 mg by mouth 2 times daily. 3 Active HYDROcodone-acetami nophen (NORCO) 5-325 MG TabletIndications:A cute diverticulitis Take 1 Tablet by mouth every 8 hours as needed for Moderate or more severe pain. 20 Tablet 3 Active metroNIDAZOLE (Flagyl) 500 MG Tablet Take 1 Tablet by mouth 3 times daily. 30 Tablet 3 Active Social History Tobacco Use Types Packs/Day Years Used Date Smoking Tobacco: Every Day Cigarettes Smokeless Tobacco: Never Tobacco Cessation:Ready to Q uit: Not Asked; Counseling Given: Not Answered Alcohol Use Standard Drinks/Week Comments Never 0 (1 standard drink = 0.6 oz pur e alcohol) Sex and Gender Information Value Date Recorded Sex Assigned at Not on file Legal Sex Male 9:21 PM CDT Gender Identity Not on file Sexual Orientation Not on file Last Filed Vital Signs Vital Sign Reading Time Taken Comments Blood Pressure 115/74 10/15/2022 9:00 PM CDT Pulse 62 10/15/2022 9:15 PM CDT Temperature 36.1 C (96.9 F) 10/15/2022 6:28 PM CDT Respiratory Rate 18 10/15/2022 6:28 PM CDT Oxygen Saturation 91% 10/15/2022 9:15 PM CDT Inhaled Oxygen Concentration - - Weight 96.2 kg (212 lb) 10/15/2022 6:28 PM CDT Height 180.3 cm (5' 11) 10/15/2022 6:28 PM CDT Body Mass Index 29.57 10/15/2022 6:28 PM CDT Plan of Treatment Health Maintenance Due Date Last Done Comments TdaP Immunization 1955 Colonoscopy 1998 Colorectal Cancer Screening 1998 Cologuard 07/09/2003 Immunochemical Fecal Occult Blood 07/09/2003 Zoster Immunization (1 of 2) 07/09/2003 Influenza Immunization (#1) 2024 092 , 02/05/2021, 02/21/2020, Additional history exists SARS-COV-2 Immunization ( season) 2024 03/11/2021, 08/05/2020, 07/12/2020 Respiratory Syncytial Virus (RSV) Immunization (Adult) (1 - 1-dose 75+ series) 2028 Hepatitis C Virus (HCV) Screening Completed 04/16/2018 Pneumococcal Immunization (50+ years) Completed 02/21/2020, 01/24/2019 Hepatitis B Immunization Aged Out No longer eligible based on patient's age to complete this topic Meningococcal Immunization (ACWY) Aged Out No longer eligible based on patient's age to complete this topic Rotavirus Immunization Aged Out No lo nger eligible based on patient's age to complete this topic Insurance MEDICARE [facility] Care Teams Deck Worker Relationship Specialty Start Date End Date Provider, None [place] PCP - General 10/15/22
--- OUTSIDE RECORDS SUMMARY | 2024-10-03 09:10 | XMS_ITS | Continuity of Care Document ---
Author Organization [facility] Address [address] [place] [address] [place] [address] Phone Care Team Providers Care Suede Brusher Name Role Phone Arash Hernandez MD Unavailable Unavailable Allergies, Adverse Reactions, Alerts Substance Reaction Status Criticality shellfish derived Active No Informa tion Medications Medication Instructions Dosage Effective Dates (start - stop) Status Comments Fiber Gummies 2 gram chewable tablet - Active Probiotic 10 billion cell capsule take 1 by oral route every day 1 - Active Metamucil 0.52 gram capsule - Active Eliquis 5 mg tablet take 1 tablet by ora l route 2 times every day 5 MG - Active Procedures Procedure Date Refraction Eye Exam & Treatment Fundus Photography W/ Report Removal Of Skin Lesion Office/outpatient Visit, New Advance Directives Directive Yes / No Effective Date File Name No Information Encounters Encounter Description Practice Location Reason(s) For Visit Diagnoses Date Provider Providers Copied on Encounter [facility], [address] [place] [address] [address], [place], [place], [id number], [place] tel:[phone] SEC Alonso ASHLEY Professional Complete Exam (chief complaint) Age-related nuclear cataract, bilateralVitre ous degeneration, left eyeCorneal opacity of right eye 0 David Antoine. [address] [facility], [address], [place], [place], [id number], [place]. tel:[phone] Referring Provider: [facility]el [facility], [place], [address]. 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 [address] [facility] [facility], [place], [place], [address], [place]. tel:[phone] Referring Provider: Marc Patel MD, [address], [place], [address]. tel:[phone] Family History Family Member Type Diagnosis Age At Onset Father Problem Diabetes mellitus Payers Payer name Insurance type Covered democrat ID Authoriza tikami(s) [place] [id number] BCBS [facility] [id number] Social History Type Description Quantity Date Captured Comments Alcohol Use Details No Caffeine Use Details No Tobacco Use Status Cigarette smoker Smoking Status Current every day smoker Smoking Tobacco Use Details Cigarette: Age Started: 16 Cigarette: No Details Available Sex Male Chief Complaint And Reason For Visit From encounter dated '04/15/2020 08:45'. Complete Exam (chief complaint). Description: The 64 year old male presents for a complete exam ou.Patient states for the last couple of months his side vision seems wavy. Patient denies any changesin vision ou. Reason For Referral Reason For Referral No Information Plan Of Treatment Date Type Action Status Goal Tobacco cessation counseling completed Goal Tobacco cessation counseling completed Patient Education Cataracts: Care Instruc tions completed Patient Education Cataracts: Care Instruc tions completed History Of Present Illness Encounter Date Complaint History Of Prese nt Illness Complete Exam The 64 year old male presents for a complete exam ou. Patient states for the last couple of months his side vision seems wavy. Patient denies any changes in vision ou. TRUST ADMINISTRATOR complete exam The 64 year old male presents for evaluation of TRUST ADMINISTRATOR complete exam in the right eye and left eye. No Ocular Hx noted. Pt reports wanting to get skin tags on RUL/RLL removed. He wants to be seen for only this issue today. They have been there for about 1 year and keep growing. Pt reports RUL droops in his vision. Isabellenet notes moderate itching and irritation of the Right eyelid lesion. Pt reports stable vision in current spec Rx. Functional Status Date Functional Assessmen t No Information Instructions Date Instruction Additional Infor madhav Impression/Plan Impression/Plan Assessments Type Assessment Date assessment Age-related nuclear cataract, bi lateral assessment Vitreous degeneration, left eye assessment Corneal opacity of right eye Apr Patient Care Teams Name Effective Dates (start - stop) Status Members No Information
--- OUTSIDE RECORDS SUMMARY | 2024-10-03 09:10 | XMS_ITS | Clinical Summary ---
Author Organization [facility] Address [address] [place] [address] Care Team Providers Care Compressed Yeast Supervisor Name Role Phone Marc Patel MD Primary Care Provider [phone] Source Comments [facility],non-owned Affiliates and Associated Physician Practices is amultiple site organization consisting of ambulatory clinics and hospital sitesin [place], [place], [place] and [place]. This disclosure is being madepursuant to the Care Everywhere program and may not contain all information available regarding this patient. Last updated 18.[facility] Allergies Active Allergy Reactions Criticality Noted Date Comments Shellfish Allergy Itching 04/16/2018 Pt states he has no problem with contrast dye Medications * Be aware that medications may not be up to date on this document. Alwaysverify current medications with the patient. psyllium (METAMUCIL) 58.6 % powder Take 1 packet by mouth 3 times daily as needed for Constipation Active Digestive Enzymes (DIGESTIVE ENZYME PO) Active Inulin (FIBER CHOICE FRUITY BITES PO) Active aspirin (ASPIRIN) 81 MG chew tablet Take 1 tablet by mouth once daily 8 Active Active Problems Problem Noted Date Diagnosed Date Dizziness 04/16/2018 Social History Tobacco Use Types Packs/Day Years Used Date Smoking Tobacco: Every Day Cigarettes Smokeless Tobacco: Never Alcohol Use Standard Drinks/Week Comments No 0 (1 standard drink = 0.6 oz pur e alcohol) Sex and Gender Information Value Date Recorded Sex Assigned at Not on file Legal Sex Male 8:35 PM FILTROSE CRUSHER Gender Identity Not on file Sexual Orientation Not on file Last Filed Vital Signs Vital Sign Reading Time Taken Comments Blood Pressure 110/63 04/17/2018 8:05 AM FILTROSE CRUSHER Pulse 63 04/17/2018 8:05 AM FILTROSE CRUSHER Temperature 36.8 C (98.2 F) 04/17/2018 8:05 AM FILTROSE CRUSHER Respiratory Rate 16 04/17/2018 8:05 AM FILTROSE CRUSHER Oxygen Saturation 92% 04/17/2018 8:05 AM FILTROSE CRUSHER Inhaled Oxygen Concentration - - Weight 104.3 kg (230 lb) 04/16/2018 8:41 PM FILTROSE CRUSHER Height 182.9 cm (6') 04/16/2018 8:41 PM FILTROSE CRUSHER Body Mass Index 31.19 04/16/2018 8:41 PM FILTROSE CRUSHER Plan of Treatment Health Maintenance Due Date Last Done Comments COLOGUARD (AGES 45-75) - COL ON CA SCREENING 1955 COLON MONITORING 1955 COLONOSCOPY - COLON CA SCREENING 1955 CT COLONOGRAPHY - COLON CA SCREENING 1955 Colorectal Cancer Screening 1955 FIT - COLON CA SCREENING 1955 FLEX SIG - COLON CA SCREENING 1955 DTAP/TDAP/TD VACCINES (1 - Tdap) 1972 PNEUMOCOCCAL VACCINE 50+ (1 of 1 - PCV) 07/09/2003 ZOSTER VACCINE (1 of 2) 07/09/2003 AAA SCREENING 2018 LIPID TESTING 04/17/2023 04/17/2018 COVID-19 VACCINE (1 - 2023-2 5 season) 2024 DEPRESSION SCREENING 05/03/2024 INFLUENZA VACCINE (Season Ended) 2025 01/02/20 17 Respiratory Syncytial Virus (RSV) Vaccine Pt: or over 60 yrs (1 - 1-dose 75+ series) 2028 HEPATITIS C SCREENING Completed 04/16/2018 HEPATITIS B VACCINE Aged Out No longe r eligible based on patient's age to complete this topic HIB VACCINE Aged Out No longer eligi ble based on patient's age to complete this topic HPV VACCINE Aged Out No longer eligi ble based on patient's age to complete this topic MENINGOCOCCAL (Group B) VACC INE SHARED DECISION-MAKING Aged Out No longer eligibl e based on patient's age to complete this topic MENINGOCOCCAL GROUPS A/C/Y/W VACCINE Aged Out No longer eligible b ased on patient's age to complete this topic Procedures Procedure Name Priority Date/Time Associated Diagnosis Comments LIPID PROFILE AM Draw 04/17/2018 3:11 AM FILTROSE CRUSHER HEPATITIS C AB SCREEN RFLX NAAT QUANT STAT 04/16/2018 8:55 PM FILTROSE CRUSHER from Last 3 Months or Most Recently Relevant to Health Maintenance Results * (ABNORMAL) LIPID PROFILE (04/17/2018 3:11 AM FILTROSE CRUSHER) Cholesterol Total 169 <200 mg/dL 04/17/2018 4:00 AM [facility] HDL 32(L) >40 mg/dL 04/17/2018 4:00 AM [facility] Comment: ATP III Classification of HDL Cholesterol: <40 mg/dL: Considered a major risk factor. >60 mg/dL: Considered a negative risk factor. LDL Calculated 109(H) <100 mg/dL 04/17/2018 4:00 AM [facility] Comment: ATP III Classification of LDL Cholesterol: <100 mg/dL: Optimal 100 - 129 mg/dL: Near Optimal/Above Optimal 130 - 159 mg/dL: Borderline High 160 - 189 mg/dL: High >190 mg/dL: Very High Triglycerides 139 <150 mg/dL 04/17/2018 4:00 AM [facility] Comment: ATP III Classification of Triglycerides: <150 mg/dL: Normal 150 - 199 mg/dL: Borderline High 200 - 400 mg/dL: High >500 mg/dL: Very High Blood BLOOD SPECIMEN / Unknown Lab Venipuncture / Unknown 04/17/2018 3:11 AM FILTROSE CRUSHER 04/17/2018 3:31 AM FILTROSE CRUSHER Jae Lamb MD LAB - CHEMISTRY ORDERABLES Final Result [address] [phone] * HEPATITIS C AB SCREEN RFLX NAAT QUANT (04/16/2018 8:55 PM FILTROSE CRUSHER) Hepatitis C Antibody Non-react enriqueta Non-reac tive 04/16/2018 9:58 PM FILTROSE CRUSHER [facility] Comment: Hepatitis C Antibody screen indicates no serologic evidence of past or current infection with Hepatitis C Virus. Patients with unexplained liver disease who are immunocompromised or suspected of having acute Hepatitis C infection may benefit from Nucleic Acid Test (RAQUEL) for Hepatitis C Viral RNA to confirm Hepatitis C status. Blood BLOOD SPECIMEN / Unknown Venipuncture / Unknown 04/16/2018 8:55 PM FILTROSE CRUSHER 04/16/2018 8:58 PM FILTROSE CRUSHER Mauricio Dalton MD LAB - CHEMISTRY ORDERABLES Final Result [address] [phone] from Last 3 Months or Most Recently Relevant to Health Maintenance Insurance CARE Member Subscriber Plan / Payer (Ef fective 2017-Present) Name:Tung Almonte Relation to Subscriber:Spouse Name:SUZETTE ALMONTE Date of :1956 (Home) Address: [address] [place] [address] Payer ID:[id number] (NAIC) Type:[employer] Address: [address] Advance Directives * Full Code (Latest Code Status on File) Date Activated Date Inactivated Comments 04/16/2018 10:47 PM 04/17/2018 12:42 PM Care Teams Compressed Yeast Supervisor Relationship Specialty Start Date End Date Marc Patel MD [address] [place] [address] PCP - General Internal Medicine 04/16/18
--- OUTSIDE RECORDS SUMMARY | 2024-10-03 09:10 | XMS_ITS | Referral Summary ---
Author Organization [facility] [address] [facility] Address [address] [place] [address] Care Team Providers Care Policy Cancellation Clerk Name Role Phone Marc Patel MD Primary Care Provider [phone] Hector Ramey MD Unavailable [phone] Tung Good DO Unavailable [phone] Marino Pang NP Unavailable [phone] Encounters Date Type Department Care Team Description 10/02/2024 Telephone [facility] [address] [place] [address] Marc Patel MD Additional Services Or Orders 09/27/2024 Orders Only [facility] [address] [place] [address] Marc Patel MD 09/08/2024 9:00 AM CDT - 09/08/2024 10:15 AM CDT Surgery [facility] Operating [facility] [address] [place] [address] Roberth Mehta MD Intracept L4, L5, and S1 09/08/2024 9:01 AM CDT Anesthesia Event [facility] [address] [place] [address] Isaiah Alex MD Standefer, Zachary Daniel, CRNA 09/08/2024 7:21 AM CDT - 09/08/2024 11:55 AM CDT Hospital Encounter [facility] [address] [place] [address] Roberth Mehta MD Discharge Disposition: Discharge to home or self care 08/18/2024 Telephone [facility] [address] [facility] [address] [place] [address] Roberth Mehta MD 08/17/2024 8:00 AM CDT Office Visit [facility] Medical [facility] [address] [facility] [address] [place] [id number] Aravind Baer PA Bilateral primary osteoarthritis of knee (Primary Dx) 07/26/2024 2:27 PM CDT - 07/26/2024 11:59 PM CDT Hospital Encounter [facility] [address] [facility] [address] [place] [address] Roberth Mehta MD Vertebrogenic low back pain (Primary Dx); Lumbar radiculopathy Discharge Disposition: Discharge to home or self care 07/14/2024 12:30 PM CDT Office Visit [facility] [address] [facility] [address] [place] [address] Cortney Odom NP Lumbar radiculopathy 07/12/2024 Telephone [facility] Medical [facility] [address] [place] [phone] Anisha Campos MA 07/12/2024 10:15 AM CDT Ancillary Procedure [employer] [address] [facility] [address] [place] [address] Cardiac pacemaker; Paroxysmal atrial fibrillation (HCC); SSS (sick sinus syndrome) ([facility]) from Last 3 Months Allergies Active Allergy Reactions Criticality Noted Date [...] 03/29/2023 Assessment & Plan (03/29/2023 2:43 PM PAPER ROLLER): Symptoms gradually improving. Prescribed Medrol taper for [...] 11/13/2021 Assessment & Plan (03/29/2023 2:42 PM PAPER ROLLER): Patient with intentional weight loss following healthy [...] (09/08/2021): Added automatically from request for surgery [id number] senior living current use of anticoagulant therapy 1 Assessment [...] healthier, we can set up appointment with orthopedic nurse/rabbet operator. Have an active lifestyle, strive for 30 [...] healthier, we can set up appointment with orthopedic nurse/rabbet operator. 3. Have an active lifestyle, strive for [...] healthier, we can set up appointment with orthopedic nurse/rabbet operator. 3. Have an active lifestyle, strive for [...] (09/16/2020): Added automatically from request for surgery [id number] Assessment & Plan (11/13/2021 8:37 AM CDT): Last colonoscopy 12/23/[address] Dan. To repeat in 3 yrs. Tobacco dependence due to cigarettes 08/15/2020 Assessment & Plan (03/29/2023 2:42 PM PAPER ROLLER): Encouraged smoking cessation Assessment & Plan (11/13/2021 8:37 AM CDT): Precontemplative. Encouraged complete smoking cessation. Discussed different types of medications & eefz-kan-hsdkdrr aides to help with cessation. Assessment & Plan (11/07/2020 8:34 AM CDT): Continues to smoke 1+PPD. contemplative. Encouraged complete smoking cessation. Discussed different types of medications & vruf-fql-toumbsx aides to help with cessation. Patients smoking >10 cigarettes/day: -Begin with step 1 (21 mg/day) for 6 weeks -followed by step 2 (14 mg/day) for 2 weeks -finish with step 3 (7 mg/day) for 2 weeks Discussed above w/Mr Cotton. nicoderm patches 21mg/day sent. Assessment & Plan (08/15/2020 9:31 AM CDT): Precontemplative. Encouraged complete smoking cessation. Discussed different types of medications & embv-jfk-vuuqeni aides to help with cessation. Encounter for screening for lipid disorder 08/15 Assessment & Plan (02/03/2024 9:53 AM CDT): Lipid stable continue to monitor. Assessment & Plan (11/07/2020 8:33 AM CDT): 04/17/18 ZJ=700 HDL=32 DK=726 GZN=321 01/05/20 TM=031 HDL=27 JN=168 LDL=71 TC/HDL=6.0 08/16/20 UM=085 HDL=39 NE=264 DHP=337 TC/HDL=5.0 Lipid panel ordered; will call w/results [...] Plan (08/15/2020 11:45 AM CDT): Referral to [facility] for colonosocpy creening. Dr Dan had requested for repeat 2017 (after 5/12/15 colonoscopy). Cardiac pacemaker 02/21/2020 Assessment & Plan (11/13/2021 8:37 AM CDT): Has L chest PPM interrogated every 3 mos. Last done 10/2021. Managed by [facility]. Assessment & Plan (02/21/2020 11:40 AM CDT): Patient's pacemaker revealed adequate capture and sensing thresholds. He has had recurrent episodes of PAF. Battery life was adequate Paroxysmal atrial fibrillation 08/22/2019 Assessment & Plan (11/13/2021 8:36 AM CDT): Managed by [facility]. Has appt 01/2022 w/Dr Gonzales. L chest [...] w/uro but is leaving to go to [place] with as her sister is having mastectomy d/t breast cancer. They are staying there w/her for a short while. Reviewed red flags. Smoker 12/10/2017 08/15/2020 Assessment & Plan (02/21/2020 11:38 AM CDT): Unfortunately the patient continues to smoke. We discussed the importance of smoking cessation. Gallstones 11/17/2017 08/15/2020 Overview (11/17/2017): Added automatically from request for surgery [id number] Incisional hernia, without o bstruction or gangrene 11/17/2017 08/15/2020 Overview (11/17/2017): Added automatically from request for surgery [id number] Left upper quadrant pain 07/06/2017 Abdominal distention 07/06/2017 021 Tobacco dependence 06/29/2017 0 Acute sinusitis 06/05/2016 08/15/2020 Overview (08/06/2016): Acute sinusitis with symptoms > 10 days Tobacco use 06/05/2016 08/18/2019 Overview (08/06/2016): Tobacco use Diverticulitis of intestine 06/15/2015 08/15/2020 Overview (08/06/2016): Diverticulitis Immunizations Immunization Administration Dates Next Due Influenza, Quadrivalent, Hig h Dose, Preservative Free, Intrr 01/18/2023,01/20/2022,02/05/2021,02/20 Influenza, Quadrivalent, Spl it, Intramuscular 01/15/2017 Influenza, Quadrivalent, Spl it, Preservative Free, Intramuscular 01/24/2019,01/24/2018,01/23/2018 Influenza, Trivalent, High D ose, Split, Preservative Free, Intramuscular 02/03/2024 Influenza, Unspecified 01/31/2018,01/01/2017 Pfizer SARS-CoV-2 Monovalent Vaccination (12+ Yrs) PURPLE 03/11/2021,08/05/2020,07/12/2020 Pneumococcal Conjugate PCV 13 01/24/2019 Pneumococcal Polysaccharide PPV23 02/21/2020 Social History Tobacco Use Types Packs/Day Years [...] on file Legal Sex Male 9:05 AM PAPER ROLLER Gender Identity Not on file Sexual Orientation [...] Description 01/30/2025 10:30 AM CDT Hospital Encounter [facility] [address] [place] [address] Milena Dan MD [address] [place] [address] [address] [place] [address] 01/30/2025 10:30 AM CDT - 01/30/2025 11:00 AM CDT Surgery [facility] [address] [place] [address] Milena Dan MD [address] [place] [address] [place] [address] COLONOSCOPY Scheduled Procedures Name Priority Associated Diagnoses Date/Ti me COLONOSCOPY History of colonic polyps 01/30/2025 10:30 AM CDT Medical Devices Implanted Type Area Dip Tube Assembler Machine Device Identifier Shelf Expiration Date Model / Serial / Lot [employer] [id number] Promri Solia S 60cm Lead Pacing Steroid Eluting - [id number] - [id number] Implanted:Qty: 1 on 07/20/2018 by Hector Ramey MD at [facility] Lead [employer] 06/02/2020 [id number] / [id number] / [employer] [id number] Solia S 53cm Steroid Elute Bipolar Active Fixation Endocardial - [id number] - [id number] Implanted:Qty: 1 on 07/20/2018 by Hector Ramey MD at [facility] Lead [employer] 04/01/2020 [id number] / [id number] / [employer] [id number] Edora Promri 53v00f2.5mm 1 Chamber Rate Adaptive Unipolar Bipolar - [id number] - [id number] Implanted:Qty: 1 on 07/20/2018 by Hector Ramey MD at [facility] Pacemaker [employer] 10/01/2019 [id number] / [id number] / Procedures Procedure Name Priority Date/Time Associated Diagnosis Comments XR SPINE LUMBAR 2 OR 3 VIEWS IP Routine 09/08/2024 10:12 AM CDT FL FLUOROSCOPY < 1 HOUR IP Routine 09/08/2024 10:12 AM CDT WV AN ELECTIVE ENDOTRACHEAL AIRWAY Routine 09/08/2024 9:37 AM CDT ABLATION RADIOFREQUENCY 09/08/2024 8:46 AM CDT M54.51 vertebrogenic low back pain Special Needs BLOOD THINNER HOLD < ECG 12-LEAD Routine 09/08/2024 7:53 AM CDT WV ARTHROCENTESIS ASPIR&/INJ MAJOR JT/BURSA W/O US Routine [...] the physician's procedure / OR operative note. Roberth Mehta MD IMG FLUOROSCOPY PROCEDU RES Final Result Performing Organization Address [facility] de Phone Number [facility] * XR Spine Lumbar 2 or 3 Views (09/08/2024 10:12 AM CDT) Narrative [facility] - 09/08/2024 10:13 AM CDT The images from this study are not interpreted by Radiology. Please refer to the physician's procedure / OR operative note. Roberth Mehta MD IMG XR PROCEDURES Final Result Performing Organization Address [facility] de Phone Number [facility] * WV AN ELECTIVE ENDOTRACHEAL AIRWAY (09/08/2024 9:37 AM CDT) Narrative Marino Mcarthur CRNA - 09/08/2024 9:37 AM CDT Marino Mcarthur CRNA 09/08/2024 9:38 AM Airway Patient location: OR Urgency: elective Date/time: 09/08/2024 9:09 AM Indications for airway management: anesthesia and airway protection Difficult airway: no Staff: Placed by: JULIO CESAR: Marino Mcarthur CRNA Emergent airway documentation: Risks [...] AM CDT) 09/08/2024 7:53 AM CDT Narrative [facility] - 09/08/2024 8:57 AM CDT Vent Rate: 61 bpm RR Interval: 982 msec WV Interval: 223 msec QRS Duration: 150 msec QT Interval: 410 msec QTC Interval: 412 msec P-R-T [place]: 116 - -14 - -9 degrees IMPRESSION: ELECTRONIC ATRIAL PACEMAKER RIGHT BUNDLE BRANCH BLOCK [120+ ms QRS DURATION, UPRIGHT V1, 40+ ms S IN I/aVL/V4/V5/V6] ABNORMAL ECG Compared to prior EKG, atrial pacing is new Electronically Signed By: Beau Fisher MD us Robbi Vega DO ECG ORDERABLES Fin al Result [facility] * WV ARTHROCENTESIS ASPIR&/INJ MAJOR JT/BURSA W/O US (08/17/2024 [...] the original result were not included. 07/12/2024 [employer] quarterly remote device check NOTE The following shows snippets from the complete quarterly report. The complete report in its entirety is attached to this Result Text in Auditor In Charge Periodic IEGM Detection Jul 12, 2024, 12:59:00 AM Dual Chamber PPM implanted July 2018 Battery longevity = OK/55% AT/AF burden: 0% Ap: 74% RVp: 1% Last in-office: 03/01/2024 Next in-office: 03/07/2025 Reviewed By Rosalia Shields RN BSN us Jocelynn Gonzales MD CV CARDIAC SERVICES PROCED URES Final Result * PSA screen (11/27/2022 10:55 AM CDT) PSA-Total 0.75 <=5.40 ng/mL [facility]) Comment: Interpretive Data AGE SEX REFERENCE INTERVAL [...] data last revised 21. Testing performed by: [facility], [address] [place] [address]., [id number] Blood 11/27/2022 10:5 5 AM CDT 11/27/2022 5:06 PM CDT us Marc Patel MD LAB BLOOD ORDERABLES Glenna l Result [facility] ([facility]) [address] [facility] Department [place] [address] * COLONOSCOPY (12/23/2020 10:01 AM CDT) Anatomical Region Laterality Modality Other Narrative Procedure Note Milena Dan MD - 12/23/2020 10:01 AM CDT [facility] Patient Name: Tung Cotton Procedure Date: 12/23/2020 10:01 AM Date of : 1955 Admit Type: Outpatient Age: 65 Gender: Male Attending MD: Milena Dan M.D. Room: [facility]COPY ROOM 1 Note Status: Finalized Patient [...] under direct vision. The Pediatric Colonoscope [id number] was introducedthrough the anus and advanced to [...] 10:01 AM Procedure Code(s): --- Professional --- 17806, Colonoscopy, flexible; with biopsy, single or multiple Diagnosis Code(s): --- Professional --- Z86.010, Personal history of colonic polyps K64.8, Other hemorrhoids K57.30, Diverticulosis of large intestine without perforation orabscess without bleeding K63.5, Polyp of colon CPT copyright 2019 [place] [employer]. All rights reserved. The codes documented in this report are preliminary and upon wind energy technician reviewmay be revised to meet current compliance requirements. Recognized by the [place] [employer] for Gastrointestinal End[employer] for promoting quality [...] Recently Relevant to Health Maintenance Insurance MEDICARE [facility] MEDICARE [facility] MEDICARE SUPPLEMENT MEDICARE BLUE CROSS MEDICARE SUPPLEMENT Advance Directives For more information, please contact: [phone] * Full Code (Latest Code Status on File) Date Activated Date Inactivated Comments 12/23/2020 9:56 AM 12/23/2020 3:49 PM * Full Code Date Activated Date Inactivated Comments 09/29/2017 10:24 AM 09/29/2017 2:36 PM Care Teams Policy Cancellation Clerk Relationship Specialty Start Date End Date Marc Patel MD [address] [place] [address] PCP - General 07/01/15 Hector Ramey MD [address] [place] [address] Consulting Physician Cardiovascular Disease 07/20/18 Tung Good DO [address] [facility] [address] [place] [address] Cardiovascular Disease 07/20/18 Marino Pang NP [address] [facility] [address] [place] [address] Nurse Practitioner Nurse Practitioner 09/23/21
--- OUTSIDE RECORDS SUMMARY | 2024-10-03 09:10 | XMS_ITS | Encounter Summary ---
Author Organization [facility] Healthcare Address [address] [place] [address] Care Team Providers Care Information Manager Name Role Phone Marc Patel MD Primary Care Provider [phone] Hector Ramey MD Unavailable [phone] Tung Good DO Unavailable [phone] Marino Pang NP Unavailable [phone] Reason for Visit * Reason Onset Date Comments Additional Services Or Orders 10/02/2024 Encounter Details Date Type Department Care Team (Late st Contact Info) Description 10/02/2024 Telephone [facility] [address] [place] [address] Marc Patel MD [address] [place] [address] Additional Services Or Orders Social History Tobacco Use Types Packs/Day Years [...] on file 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 Reports pt has been symptomatic 'for a few days'. Started with diverticulitis which pt has been compliant with taking medication. Followed with symptoms of sinus congestion, coughing, and headaches. States she can hear patient wheezing when he breathes and pt has low grade fever. Denies chest pain. Please advise, thank you. * Telephone Encounter - Silva Rodriguez - 10/02/2024 9:48 AM CDT Additional Services or Orders Type of Service Requested:Other Reason for Request (e.g. condition/symptom, date of COVID exposure if applicable): Possible pneumonia Details Regarding Additional Services (e.g. type of home health, type of equipment, type of test, etc.): Chest Xray Where will services be performed? (if outside of the practice, facility name, address, phone/fax offacility): [facility] Additional Comments: Patient's spouse stated the patient would like to check if he has pneumonia and would like the orders sent as soon as possible. Sending high priority. Does message need to be routed? Yes-Action Needed documented in this encounter Plan of Treatment Upcoming Encounters Date Type Department Care Team (Late st Contact Info) Description 01/30/2025 10:30 AM CDT Hospital Encounter [address] [address] Milena Dan MD [address] [facility] [address] [place] [address] 01/30/2025 10:30 AM CDT - 01/30/2025 11:00 AM CDT Surgery [address] [address] Milena Dan MD 4 [facility] [address] [place] [address] COLONOSCOPY Scheduled Orders Name Type Priority Associated Diagnoses Orde r Schedule XR Chest PA Lateral 2 Views Imaging Schedule Routine, Read Routine (OP Routine) Acute cough Expected: 10/03/2024, Expires: 10/02/2025 Scheduled Procedures Name Priority Associated Diagnoses Date/Ti me COLONOSCOPY History of colonic polyps 01/30/2025 10:30 AM CDT documented as of this encounter Visit Diagnoses Diagnosis History of colonic polyps- Primary Personal history of colonic polyps Acute cough- Primary History of colonic polyps Personal history of colonic polyps documented in this encounter Care Teams Information Manager Relationship Specialty Start Date End Date Marc Patel MD [address] [place] [address] PCP - General 07/01/15 Hector Ramey MD [address] [place] [address] Consulting Physician Cardiovascular Disease 07/20/18 Tung Good DO 2 [facility] [address] [place] [address] Cardiovascular Disease 07/20/18 Marino Pang NP 4 [facility] [address] [place] [address] Nurse Practitioner Nurse Practitioner 09/23/21 documented as of this encounter
--- OUTSIDE RECORDS SUMMARY | 2024-10-03 09:14 | XMS_ITS | Continuity of Care Document ---
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 Role Phone Arash Hernandez MD Unavailable Unavailable Allergies, Adverse Reactions, Alerts Substance Reaction Status Criticality shellfish derived Active No Informa tion Medications Medication Instructions Dosage Effective Dates (start - stop) Status Comments Eliquis 5 mg tablet take 1 tablet by ora l route 2 times every day 5 MG - Active Metamucil 0.52 gram capsule - Active Probiotic 10 billion cell capsule take 1 by oral route every day 1 - Active Fiber Gummies 2 gram chewable tablet - Active Procedures Procedure Date Refraction Eye Exam & Treatment Fundus Photography W/ Report Removal Of Skin Lesion Office/outpatient Visit, New Advance Directives Directive Yes / No Effective Date File Name No Information Encounters Encounter Description Practice Location Reason(s) For Visit Diagnoses Date Provider Providers Copied on Encounter [facility], [address] [place] [address] [address], [place], [place], [id number], [place] tel:[phone] SEC Alonso ASHLEY Professional Complete Exam (chief complaint) Age-related nuclear cataract, bilateralVitre ous degeneration, left eyeCorneal opacity of right eye 0 David Antoine. [address] [facility], [address], [place], [place], [id number], [place]. tel:[phone] Referring Provider: [facility]el [facility], [facility], [place], [address]. 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 [address] [facility] [address], [place], [place], [address], [place]. tel:[phone] Referring Provider: Marc Patel MD, [address], [place], [address]. tel:[phone] Family History Family Member Type Diagnosis Age At Onset Father Problem Diabetes mellitus Payers Payer name Insurance type Covered alliance party ID Authoriza tikami(s) [place] [id number] BCBS [facility] [id number] Social History Type Description Quantity Date Captured [...] Patient denies any changes in vision ou. 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
--- NOTE | 2024-10-03 09:26 | ED_ITS ---
HPI - General Adult General Chief complaint: Upper Respiratory Infection Stated complaint: Cough/Chest Congestion Source: patient Mode of arrival: ambulatory Limitations: no limitations History of Present Illness HPI narrative: Pt presents for evaluation of respiratory symptoms for the last four days. Symptoms include low grade fever, productive cough of white sputum, shortness of breath, and right-sided pleuritic chest pain. He has a history of pneumonia and this feels similar. He is not taking any medications [id number] to assist the symptoms. He does smoke 1 pack per day. No recent sick contacts to his knowledge. Related Data Home Medications ?Medication ?Instructions ?Recorded ?Confirmed ?Last Taken ?Type apixaban 5 mg tablet (Eliquis) 5 mg PO BID 07/04/22 07/04/22 Unknown History Allergies Allergy/AdvReac Type Severity Reaction Status Date / Time shellfish derived Allergy Mild Rash Verified 07/04/22 09:44 Review of Systems Review of Systems: CONSTITUTIONAL: Reports low grade fever. Denies chills or sweats. EYES: Denies visual changes, redness, or discharge. ENT: Denies rhinorrhea, congestion, sore throat, or otalgia. CARDIOVASCULAR: Denies palpitations or edema. RESPIRATORY:Reports productive cough of white sputum, SOB and pleuritic chest pain. GASTROINTESTINAL: Denies abdominal pain, nausea, vomiting, or diarrhea. GENITOURINARY: Denies dysuria or hematuria. SKIN: Denies rash or itching. MUSCULOSKELETAL: Denies back pain, joint pain, or myalgia. NEUROLOGIC: Denies headache, numbness, dizziness, or weakness. PSYCHIATRIC: Denies anxiety or depression. [facility] Past Medical History Medical History Atrial fibrillation Diverticulosis Surgical History Surgical History (Updated 10/03/24 @ 10:07 by CLAUDIA Ceja, NANCY) History of permanent cardiac pacemaker placement Family History Family History Father Cerebrovascular accident Mother Family history of chronic obstructive pulmonary disease Acute myocardial infarction Other Diabetes mellitus Family history of cardiovascular disease Family history of malignant neoplasm Social History Social History Smoking packs per day: 1 Smoking cigarettes per day: 20.0 Smoking status: Current every day smoker Tobacco type: cigarettes Alcohol intake: never Living arrangements: with family Gender identity (if verbalized by the patient): Male Spiritual care concerns: No Exam Narrative: GENERAL: Well-appearing, well-nourished, and in no acute distress. HEAD: Normocephalic, atraumatic. EYES: PERRLA and EOMI. ENT: Nares clear, no rhinorrhea or epistaxis. Mucous membranes moist. Oropharynx without tonsillar hypertrophy exudate or other lesions. Bilateral TMs pearly [place] nonbulging NECK: Supple. No adenopathy or masses. No carotid bruits or JVD CHEST: Wheezing and rales noted on the right. Cough present on exam HEART: Regular rate and rhythm. No murmur heard. Normal peripheral pulses. ABDOMEN: Soft, nontender, nondistended, normal active bowel sounds. EXTREMITIES: Normal range of motion. No edema. SKIN: Warm, dry, no rash. NEURO: No focal deficits. Alert and oriented x3. PSYCH: Normal mood and affect. Course Course Emergency Course: This is a 69-year-old male who presented for evaluation of respiratory symptoms. COVID, influenza, chest x-ray were negative. However his clinical condition is concerning for pneumonia. Will dc with augmentin, azithromycin, prednisone and albuterol. Will extend duration of augmentin for another seven days, as he is already taking for diverticulitis. Advised on smoking cessation. Follow up with primary provider. Go to the ER for worsening symptoms. Pt in agreement with plan of care. Level of Care: Express Care Visit Vital Signs Vital signs: Vital Signs Temperature 36.4 C 10/03/24 09:09 Pulse Rate 75 10/03/24 09:09 Respiratory Rate 16 10/03/24 09:09 Blood Pressure 140/77 10/03/24 09:09 Pulse Oximetry 98 10/03/24 09:09 Oxygen Delivery Room Air 10/03/24 09:09 Temperature 36.4 C 10/03/24 09:09 Pulse Rate 75 10/03/24 09:09 Respiratory Rate 16 10/03/24 09:09 Blood Pressure 140/77 10/03/24 09:09 Pulse Oximetry 98 10/03/24 09:09 Oxygen Delivery Room Air 10/03/24 09:09 Medical Decision Making Vital Signs Vital Signs: Vital Signs Temperature 36.4 C 10/03/24 09:09 Pulse Rate 75 10/03/24 09:09 Respiratory Rate 16 10/03/24 09:09 Blood Pressure 140/77 10/03/24 09:09 Pulse Oximetry 98 10/03/24 09:09 Oxygen Delivery Room Air 10/03/24 09:09 Temperature 36.4 C 10/03/24 09:09 Pulse Rate 75 10/03/24 09:09 Respiratory Rate 16 10/03/24 09:09 Blood Pressure 140/77 10/03/24 09:09 Pulse Oximetry 98 10/03/24 09:09 Oxygen Delivery Room Air 10/03/24 09:09 Lab Data Labs: Lab Results 10/03/24 Range/Units 09:42 POC Influenza A Ag Negative (Negative) POC Influenza B Ag Negative (Negative) POC SARS CoV-2 Ag Negative (Negative) Imaging Data Radiologist's impression: XR chest 2V 10/03/2024 09:30 Indication: Cough for 4 days Procedure: 2 view chest Comparison: 07/04/2022 Findings: Heart size normal. Pacemaker leads stable. No focal air space disease, pulmonary edema, pleural effusion or suspected pneumothorax. Impression: 1: No acute cardiopulmonary disease. Discharge Plan Discharge Clinical Impression: At risk for pneumonia Patient Disposition: Home Condition: Stable Instructions: Antibiotic Form, How to Stop Smoking (ED), Community Acquired Pn [place] ([place]) Patient Language: [place] Prescriptions: New amoxicillin-pot clavulanate 875-125 mg tablet 1 tablet PO Q12H Qty: 14 0RF azithromycin 250 mg tablet See Rx Instructions .ROUTE .COMPLEX Qty: 6 0RF Rx Instructions: For 250 mg dose pack: take 500 mg today (day 1), then 250 mg for 4 days (days 2-5) prednisone 50 mg tablet 50 mg PO DAILY Qty: 5 0RF albuterol sulfate [Ventolin HFA] 90 mcg/actuation HFA aerosol inhaler 2 puff inhalation QID PRN (Reason: shortness of breath or wheezing) Qty: 8.5 0RF No Action Eliquis 5 mg tablet 5 mg PO BID amoxicillin-pot clavulanate 875-125 mg tablet 1 tablet PO Q12H 10 Days Qty: 20 0RF Follow-up/Referrals: Harms,Marc Trevino M.D. [Primary Care Provider] - Time of Disposition: 09:54
[2024-10-03 09:44] LABS: EDCOVIDSCREEN Negative (Negative); EDINFLUASCREEN Negative (Negative); EDINFLUBSCREEN Negative (Negative)
== END 2024-10-03 10:02 | disposition home or self-care (01) ==
PROVIDERS: Emergency Provider Nurse Practitioner; PCP Family Medicine
DX: R05.9 Cough, unspecified (principal); R09.89 Other specified symptoms and signs involving the circulatory and respiratory systems; R06.02 Shortness of breath; I48.91 Unspecified atrial fibrillation; F17.210 Nicotine dependence, cigarettes, uncomplicated; Z20.822 Contact with and (suspected) exposure to COVID-19
CPT/HCPCS: 71046; 87426; 87804; 99213; G0463